=== PATIENT | male | born 2000 | race Caucasian/White ===

== ENCOUNTER 2023-06-24 10:40 | Observation (INO) | payer MEDICAID, OTHER ==
[2023-06-24] MEDS ORDERED: XYLOCAINE 1% HCL 20 ML MDV ONE (11:15)
[2023-06-24] MEDS ORDERED: MORPHINE SULFATE 2 MG INJ ONE (11:29)
--- NOTE | 2023-06-24 11:29 | ERPHSYRPT ---
- History of Present Illness Time Seen by Provider: 06/24/23 11:24 Source: patient Exam Limitations: no limitations Patient Subjective Stated Complaint: Pt states that he has an abcess on his right buttock Triage Nursing Assessment: Pt was brought to the ER by his , vitals wnl, rates pain as 8-9/10, pulses normal, skin n/w/d, extra large abcess to right distal buttock, appears to be in significant pain Physician History: Patient is a 23-year-old male presents to our ED for evaluation of a large perirectal abscess on the right gluteus. Patient states symptoms started 1 week ago. Patient did not initially seek medical assistance as he has gotten abscesses in the past and they just tend to resolve spontaneously. This abscess has gotten progressively worse. Patient has no systemic manifestations. No fever no nausea no vomiting. However the area is very tender. No trauma. Patient has no significant past medical history. Patient otherwise healthy. He voices no other complaints or concerns at this time. Portions of this note were created with voice recognition technology. There may be grammatical, spelling, punctuation or sound alike errors Timing/Duration: day(s) Severity: moderate Modifying Factors: Improves With: nothing Associated Symptoms: denies symptoms Allergies/Adverse Reactions: No Known Drug Allergies Allergy (Verified 06/24/23 10:59) Home Medications: No Reportable Medications [No Reported Medications] 06/24/23 [History] Hx Tetanus, Diphtheria Vaccination/Date Given: No Hx Influenza Vaccination/Date Given: No Hx Pneumococcal Vaccination/Date Given: No Travel Risk - International Travel Have you traveled outside of the country in past 3 weeks: No - Emerging Infectious Disease Are you exhibiting symptoms associated with any current EIDs: No - Review of Systems Constitutional: No Symptoms, No Fever, No Chills Eyes: No Symptoms Ears, Nose, & Throat: No Symptoms Respiratory: No Symptoms, No Cough, No Dyspnea Cardiac: No Symptoms, No Chest Pain, No Edema, No Syncope Abdominal/Gastrointestinal: No Symptoms, No Abdominal Pain, No Nausea, No Vomiting, No Diarrhea Genitourinary Symptoms: No Symptoms, No Dysuria Musculoskeletal: No Symptoms, No Back Pain, No Neck Pain Skin: No Symptoms, No Rash Neurological: No Symptoms, No Dizziness, No Focal Weakness, No Sensory Changes Psychological: No Symptoms Endocrine: No Symptoms Hematologic/Lymphatic: No Symptoms Immunological/Allergic: No Symptoms All Other Systems: Reviewed and Negative - Past Medical History Pertinent Past Medical History: Yes Cardiac History: Hypertension Other Medical History: obesity, kidney stones - Past Surgical History Past Surgical History: Yes Other Surgical History: toe surgery - Social History Smoking Status: Current every day smoker Exposure to second hand smoke: Yes - Nursing Vital Signs Nursing Vital Signs: Initial Vital Signs Temperature 97.5 F 06/24/23 10:47 Pulse Rate 88 06/24/23 10:47 Blood Pressure 129/74 06/24/23 10:47 O2 Sat by Pulse Oximetry 100 06/24/23 10:47 Pain Scale Pain Intensity 8 - Physical Exam General Appearance: no apparent distress, alert Eye Exam: PERRL/EOMI, eyes nml inspection Ears, Nose, Throat Exam: normal ENT inspection, TMs normal, pharynx normal, moist mucous membranes Neck Exam: normal inspection, non-tender, supple, full range of motion Respiratory Exam: normal breath sounds, lungs clear, No respiratory distress Cardiovascular Exam: regular rate/rhythm, normal heart sounds, normal peripheral pulses Gastrointestinal/Abdomen Exam: soft, normal bowel sounds, No tenderness, No mass Back Exam: normal inspection, normal range of motion, No CVA tenderness, No vertebral tenderness Extremity Exam: normal inspection, normal range of motion, pelvis stable Neurologic Exam: alert, oriented x 3, cooperative, normal mood/affect, nml cerebellar function, nml station & gait, sensation nml, No motor deficits Skin Exam: normal color, warm, dry, No rash Lymphatic Exam: No adenopathy SpO2 Interpretation: normal SpO2: 100 O2 Delivery: Room Air - Course Nursing assessment & vital signs reviewed: Yes Ordered Tests: Active Orders 24 hr Category Date Time Status Shingle Bolt Cutter STAT Care 06/24/23 11:26 Active IV Insertion STAT Care 06/24/23 11:24 Active ABDOMEN AND PELVIS W CONTRAST [CT] Stat Exams 06/24/23 11:36 Completed BLOOD CULTURE Stat Lab 06/24/23 11:54 Received CBC W DIFF Stat Lab 06/24/23 12:02 Completed CMP Stat Lab 06/24/23 12:02 Completed Transfer Order Routine Transfer 06/24/23 Ordered Medication Summary Discontinued Medications Generic Name Dose Route Start Last Admin Trade Name Freq PRN Reason Stop Dose Admin Piperacillin Sod/Tazobactam 100 mls @ 200 mls/hr 06/24/23 11:26 06/24/23 11:33 Sod 3.375 gm/ Sodium Chloride IV 06/24/23 11:55 200 mls/hr STAT ONE Administration Sodium Chloride Confirm 06/24/23 11:30 Sodium Chloride 100ml Mini-Bag Plus Administered 06/24/23 11:31 Dose 100 mls @ ud IV .STK-MED ONE Sodium Chloride Confirm 06/24/23 11:32 Sodium Chloride 100ml Mini-Bag Plus Administered 06/24/23 11:33 Dose 100 mls @ ud IV .STK-MED ONE Lidocaine HCl Confirm 06/24/23 11:15 Lidocaine Hcl 1% 20 Ml Mdv 20 Ml Ml Administered 06/24/23 11:16 Dose 1 ml .ROUTE .STK-MED ONE Morphine Sulfate 2 mg 06/24/23 11:24 06/24/23 11:36 Morphine Sulfate 2 Mg/Ml Inj IV 06/24/23 11:25 2 mg STAT ONE Administration Morphine Sulfate Confirm 06/24/23 11:29 Morphine Sulfate 2 Mg/Ml Inj Administered 06/24/23 11:30 Dose 2 mg .ROUTE .STK-MED ONE Piperacillin Sod/Tazobactam Sod Confirm 06/24/23 11:30 Piperacillin/Tazobactam Sodium 3.375 Gm Vial Administered 06/24/23 11:31 Dose 3.375 gm IV .STK-MED ONE Lab/Rad Data: Laboratory Result Diagrams 06/24/23 12:02 06/24/23 12:02 Laboratory Results 06/24/23 06/24/23 Range/Units 12:02 12:02 WBC 14.4 H (4.0-10.5) x10^3/uL RBC 4.89 (4.1-5.6) x10^6/uL Hgb 14.4 (12.5-18.0) g/dL Hct 43.6 (42-50) % MCV 89.2 (78-100) fL MCH 29.4 (26-32) pg MCHC 33.0 (32-36) g/dL RDW 12.5 (11.5-14.0) % Plt Count 199 (150-450) x10^3/uL MPV 11.6 H (7.5-11.0) fL Gran % 80.4 H (36.0-66.0) % Immature Gran % (Auto) 0.3 (0.00-0.4) % Nucleat RBC Rel Count 0.0 (0.00-0.1) % Eos # (Auto) 0.03 (0-0.5) x10^3/uL Immature Gran # (Auto) 0.04 H (0.00-0.03) x10^3u/L Absolute Lymphs (auto) 1.73 (1.0-4.6) x10^3/uL Absolute Monos (auto) 0.97 (0.0-1.3) x10^3/uL Absolute Nucleated RBC 0.00 (0.00-0.01) x10^3u/L Lymphocytes % 12.0 L (24.0-44.0) % Monocytes % 6.8 (0.0-12.0) % Eosinophils % 0.2 (0.00-5.0) % Basophils % 0.3 (0.0-0.4) % Absolute Granulocytes 11.55 H (1.4-6.9) x10^3/uL Basophils # 0.05 (0-0.4) x10^3/uL Sodium 141 (135-145) mmol/L Potassium 3.9 (3.5-5.1) mmol/L Chloride 108 H (98-107) mmol/L Carbon Dioxide 23 (22-30) mmol/L Anion Gap 13.8 (5-15) MEQ/L BUN 8 L (9-20) mg/dL Creatinine 0.97 (0.66-1.25) mg/dL Estimated GFR 111.1 ML/MIN Glucose 95 (74-106) mg/dL Calcium 9.4 (8.4-10.2) mg/dL Total Bilirubin 1.20 (0.2-1.3) mg/dL AST 20 (17-59) U/L ALT 23 (0-50) U/L Alkaline Phosphatase 61 (38-126) U/L Serum Total Protein 8.0 (6.3-8.2) g/dL Albumin 4.4 (3.5-5.0) g/dL - Progress Progress: improved Progress Note: 23-year-old male presents to our ED with a right perirectal abscess. The abscess is large and measures 5 x 6 cm. There is obvious fluctuance. CT abdomen pelvis reveals a cellulitis however per CT there is no organized fluid collection. Clinically there is fluctuance which indicates an abscess. Due to the size and patient request patient will be admitted for surgical evaluation. Antibiotics infused. Pain medication administered. Patient resting comfortably. I spoke to Dr. Thomas regarding the case. Formal consultation entered. Case discussed with Dr. Javier at 1245. Dr. Jarvis except admission to observation. Portions of this note were created with voice recognition technology. There may be grammatical, spelling, punctuation or sound alike errors Complexity problem addressed is moderate acute complicated No critical care time Complex data reviewed and analyzed is extensive test ordered test reviewed results analyzed and correlated clinically with history and physical examinat ion. Management discussed with hospitalist and general surgeon. Risk of complication or risk of morbidity/mortality of patient management is high. Patient requires hospitalization for further evaluation and treatment. Vital stable. Time spent in patient is approximately 30 minutes. Plan of care established for shared decision making. No social determinants of health present to be follow-up. Portions of this note were created with voice recognition technology. There may be grammatical, spelling, punctuation or sound alike errors 06/24/23 13:45 Counseled pt/family regarding: lab results, diagnosis, rad results - Departure Departure Disposition: Observation Clinical Impression: Leukocytosis, Abscess, Cellulitis, gluteal Condition: Stable Critical Care Time: No Referrals: DOCTOR,NO FAMILY [Primary Care Provider] - Follow up/PCP as directed
[2023-06-24] MEDS ORDERED: PIPERACILLIN/TAZOBACTAM IV ONE (11:30)
[2023-06-24] MEDS ORDERED: Sodium Chloride 100ML MINI-BAG PLUS 0 ML IV ONE (11:30)
[2023-06-24] MEDS ORDERED: Sodium Chloride 100ML MINI-BAG PLUS 100 ML IV ONE (11:32)
[2023-06-24] MEDS: PIPERACILLIN/TAZOBACTAM 3.375 GM in Sodium Chloride 100ML MINI-BAG PLUS 100 ML IV ONE (11:33)
[2023-06-24] MEDS: MORPHINE SULFATE 2 MG INJ IV ONE (11:36)
[2023-06-24 12:09] LABS: Absolute Neutrophil Ct (ANC) 11.55 x10^3/uL (1.4-6.9); BASOPHIL % 0.3 % (0.0-0.4); Basophil (Absolute #) 0.05 x10^3/uL (0-0.4); Eosinophil % 0.2 % (0.00-5.0); Eosinophil (Absolute #) 0.03 x10^3/uL (0-0.5); Hematocrit 43.6 % (42-50); Hemoglobin 14.4 g/dL (12.5-18.0); IMMATURE GRAN # 0.04 x10^3u/L (0.00-0.03); IMMATURE GRAN % 0.3 % (0.00-0.4); Lymphocyte (Absolute #) 1.73 x10^3/uL (1.0-4.6); Mean Cell Volume 89.2 fL (78-100); Mean Corpuscular Hemoglobin 29.4 pg (26-32); Mean Platelet Volume 11.6 fL (7.5-11.0); Monocyte (Absolute #) 0.97 x10^3/uL (0.0-1.3); Monocytes % 6.8 % (0.0-12.0); Neutrophil % 80.4 % (36.0-66.0); Platelet Count 199 x10^3/uL (150-450); Red Blood Count 4.89 x10^6/uL (4.1-5.6); Red Cell Distribution Width 12.5 % (11.5-14.0); White Blood Count 14.4 x10^3/uL (4.0-10.5)
[2023-06-24 12:22] LABS: ALBUMIN 4.4 g/dL (3.5-5.0); ANION GAP 13.8 MEQ/L (5-15); BILIRUBIN,TOTAL 1.2 mg/dL (0.2-1.3); Calcium 9.4 mg/dL (8.4-10.2); Creatinine 1 0.97 mg/dL (0.66-1.25); EST GLOMERULAR FILTRATION RATE 111.1 ML/MIN; Potassium 3.9 mmol/L (3.5-5.1)
--- NOTE | 2023-06-24 13:30 | XRAY ---
Indication: Perirectal abscess. Multiple contiguous axial images obtained through the abdomen and pelvis using 80 cc Isovue 370 contrast. Comparison: None Lung bases clear. Heart not enlarged. Noncontrasted stomach and bowel loops appear nonobstructed with normal appendix. Minimal sigmoid and lesser degree descending diverticulosis without diverticulitis. Both kidneys enhance and excrete with 2.5 cm left renal cortical cyst. Remaining liver, gallbladder, pancreas, spleen, adrenal glands, kidneys, ureters, bladder, and aorta are unremarkable. No pathologic retroperitoneal lymphadenopathy. Right buttock demonstrates large focus of cutaneous/subcutaneous induration without focal walled off fluid collection or subcutaneous emphysema. A few enlarged right inguinal lymph nodes, largest 1.2 x 1.5 cm presumed reactive. Osseous structures intact. Impression: 1. Right gluteal cellulitis without focal abscess/subcutaneous emphysema. Prominent reactive right inguinal lymph nodes. 2. Incidental colonic diverticulosis and small left renal cyst. 3. Remaining CT abdomen/pelvis with contrast exam is negative.
[2023-06-24] MEDS ORDERED: DIPRIVAN 200 MG/20 ML IV ONE (13:57)
--- NOTE | 2023-06-24 14:27 | PCM.HP ---
History of Present Illness - Chief Complaint Chief Complaint: krystle- rectal abcess Date: 06/24/23 History of Present Illness: is a 23 year old male with a reported hx of HTN but not on any meds. He presented to our ED today for evaluation of a large perirectal abscess on the right gluteus. Patient states symptoms started 1 week ago. Patient did not initially seek medical assistance as he has gotten abscesses in the past and they just tend to resolve spontaneously. This abscess has gotten progressively worse. Patient has no systemic manifestations. No fever no nausea no vomiting. However the area is very tender. No trauma. Patient has no significant past medical history. Patient otherwise healthy. He voices no other complaints or concerns at this time. General surgery consulted and will be taking pt to surgery later today for I&D. - Review of Systems Constitutional: No Fever, No Chills Eyes: No Symptoms Ears, Nose, & Throat: No Symptoms Respiratory: No Cough, No Short Of Breath Cardiac: No Chest Pain, No Edema, No Syncope Abdominal/Gastrointestinal: No Abdominal Pain, No Nausea, No Vomiting, No Diarrhea Genitourinary Symptoms: No Dysuria Musculoskeletal: No Back Pain, No Neck Pain Skin: Cellulitis (krystle- rectal abcess), Skin Lesions, Other, No Rash Neurological: No Dizziness, No Focal Weakness, No Sensory Changes Psychological: No Symptoms Endocrine: No Symptoms Hematologic/Lymphatic: No Symptoms Immunological/Allergic: No Symptoms Medications & Allergies Home Medications: Home Medication List No Reportable Medications [No Reported Medications] 06/24/23 [History Confirmed 06/24/23] Allergies/Adverse Reactions: Allergies Allergy/AdvReac Type Severity Reaction Status Date / Time No Known Drug Allergies Allergy Verified 06/24/23 10:59 - Past Medical History Past Medical History: Yes Cardiac History: Hypertension Comment: obesity, kidney stones - Past Surgical History Past Surgical History: Yes Other Surgical History: toe surgery - Social History Smoking Status: Current every day smoker Exposure to second hand smoke: Yes Alcohol: Occasionally - Social Determinants of Health Will the patient participate in the screening: Yes Do you worry about a steady place to live?: No Do you have any problems with any of the following?: No known problems In the past 12 months,have you had to go without utilities?: No Have you or anyone in your house had to go without enough: No Transportation Issues: No Has anyone in your support network made you feel unsafe?: No - Physical Exam Vital Signs: Vital Signs - 24 hr Temp Pulse BP BP Pulse Ox 06/24/23 13:48 100 06/24/23 13:01 132/78 99 06/24/23 13:00 98 06/24/23 12:50 100 06/24/23 12:46 99 06/24/23 11:48 119/68 06/24/23 11:00 147/73 06/24/23 10:47 97.5 F 88 129/74 100 General Appearance: no apparent distress, alert Neurologic Exam: alert, oriented x 3, cooperative, normal mood/affect, nml cerebellar function, nml station & gait, sensation nml, No motor deficits Eye Exam: PERRL/EOMI, eyes nml inspection Ears, Nose, Throat Exam: normal ENT inspection, TMs normal, pharynx normal, moist mucous membranes Neck Exam: normal inspection, non-tender, supple, full range of motion Respiratory Exam: normal breath sounds, lungs clear, No respiratory distress Cardiovascular Exam: regular rate/rhythm, normal heart sounds, normal peripheral pulses Gastrointestinal/Abdomen Exam: soft, normal bowel sounds, No tenderness, No mass Rectal Exam: other (krystle- rectal abcess) Back Exam: normal inspection, normal range of motion, No CVA tenderness, No vertebral tenderness Extremity Exam: normal inspection, normal range of motion, pelvis stable Skin Exam: normal color, warm, dry, No rash Lymphatic Exam: No adenopathy Results - Labs Lab/Micro Results: Lab Results-Last 24 Hours 06/24/23 06/24/23 Range/Units 12:02 12:02 WBC 14.4 H (4.0-10.5) x10^3/uL RBC 4.89 (4.1-5.6) x10^6/uL Hgb 14.4 (12.5-18.0) g/dL Hct 43.6 (42-50) % MCV 89.2 (78-100) fL MCH 29.4 (26-32) pg MCHC 33.0 (32-36) g/dL RDW 12.5 (11.5-14.0) % Plt Count 199 (150-450) x10^3/uL MPV 11.6 H (7.5-11.0) fL Gran % 80.4 H (36.0-66.0) % Immature Gran % (Auto) 0.3 (0.00-0.4) % Nucleat RBC Rel Count 0.0 (0.00-0.1) % Eos # (Auto) 0.03 (0-0.5) x10^3/uL Immature Gran # (Auto) 0.04 H (0.00-0.03) x10^3u/L Absolute Lymphs (auto) 1.73 (1.0-4.6) x10^3/uL Absolute Monos (auto) 0.97 (0.0-1.3) x10^3/uL Absolute Nucleated RBC 0.00 (0.00-0.01) x10^3u/L Lymphocytes % 12.0 L (24.0-44.0) % Monocytes % 6.8 (0.0-12.0) % Eosinophils % 0.2 (0.00-5.0) % Basophils % 0.3 (0.0-0.4) % Absolute Granulocytes 11.55 H (1.4-6.9) x10^3/uL Basophils # 0.05 (0-0.4) x10^3/uL Sodium 141 (135-145) mmol/L Potassium 3.9 (3.5-5.1) mmol/L Chloride 108 H (98-107) mmol/L Carbon Dioxide 23 (22-30) mmol/L Anion Gap 13.8 (5-15) MEQ/L BUN 8 L (9-20) mg/dL Creatinine 0.97 (0.66-1.25) mg/dL Estimated GFR 111.1 ML/MIN Glucose 95 (74-106) mg/dL Calcium 9.4 (8.4-10.2) mg/dL Total Bilirubin 1.20 (0.2-1.3) mg/dL AST 20 (17-59) U/L ALT 23 (0-50) U/L Alkaline Phosphatase 61 (38-126) U/L Serum Total Protein 8.0 (6.3-8.2) g/dL Albumin 4.4 (3.5-5.0) g/dL - Radiology Impressions Radiology Exams & Impressions: Radiology Procedures Category Date Time Status ABDOMEN AND PELVIS W CONTRAST [CT] Stat Exams 06/24/23 11:36 Completed Assessment/Plan (1) Krystle-rectal abscess Current Visit: Yes Status: Acute Assessment & Plan: - Contact isolation - Flagyl, ceftriaxone, and vancomycin - Surgery consult - Narcotic pain meds PRN - Tylenol for pain or fever PRN Code(s): K61.1 - RECTAL ABSCESS (2) Obesity (BMI 30-39.9) Current Visit: Yes Status: Acute Assessment & Plan: - advised diet and exercise control Code(s): E66.9 - OBESITY, UNSPECIFIED (3) Leukocytosis Current Visit: Yes Status: Acute Assessment & Plan: - 2:2 perirectal abcess VTE: SCD's Next of KIN: D/c plan 1-2 days Code status: Full Code(s): D72.829 - ELEVATED WHITE BLOOD CELL COUNT, UNSPECIFIED Telemedicine Encounter - Telemedicine Encounter Telemedicine Encounter: The entirety of this encounter was performed via Telemedicine"
[2023-06-24] MEDS ORDERED: NORCO 5/325 MG PO PRN ×2 (14:30→20:53)
[2023-06-24] MEDS ORDERED: MORPHINE SULFATE 2 MG INJ IV PRN (14:30)
[2023-06-24] MEDS ORDERED: TYLENOL 325 MG PO PRN (14:31)
[2023-06-24] MEDS: ROCEPHIN 1 GM / 100 ML NaCl 1 GM/100 ML IVPB IV SCH (16:21)
[2023-06-24] MEDS: PHARMACY DOSING REQUIRED: VANCOMYCIN IV STA (16:36)
[2023-06-24] MEDS: FLAGYL 500 MG IVPB 500 MG/100 ML BAG IV SCH (16:49)
[2023-06-24] MEDS: VANCOMYCIN 1.5 GRAM/300 ML BAG 1.5 GM/300 ML PIGGYBACK IV SCH (17:52)
[2023-06-24] MEDS ORDERED: SUBLIMAZE 100 MCG/2 ML ONE (18:59)
[2023-06-24] MEDS ORDERED: BRIDION 200MG/2ML IV ONE (19:29)
[2023-06-24] MEDS ORDERED: ROCURONIUM BROMIDE IV ONE (19:29)
[2023-06-24] MEDS ORDERED: Decadron 4 MG INJ ONE (19:29)
[2023-06-24] MEDS ORDERED: Zofran 4 MG/2 ML VIAL ONE (19:29)
[2023-06-24] MEDS ORDERED: Quelicin Fliptop 200 MG/10 ML ONE (19:29)
[2023-06-24] MEDS ORDERED: DILAUDID 2 MG INJECTION ONE (19:31)
[2023-06-24] MEDS ORDERED: MORPHINE SULFATE 4 MG INJ IV PRN (20:39)
[2023-06-24] MEDS ORDERED: Zofran 4 MG/2 ML VIAL IV PRN (20:40)
[2023-06-24] MEDS: PIPERACILLIN/TAZOBACTAM 3.375 GM in Sodium Chloride 100ML MINI-BAG PLUS 100 ML IV SCH (22:49)
[2023-06-24] MEDS: Ambien 5 MG Tablet PO PRN (22:50)
[2023-06-25 05:47] LABS: Hematocrit 41.7 % (42-50); Hemoglobin 13.9 g/dL (12.5-18.0); Mean Cell Volume 87.6 fL (78-100); Mean Corpuscular Hemoglobin 29.2 pg (26-32); Mean Corpuscular Hgb Concent. 33.3 g/dL (32-36); Mean Platelet Volume 11.8 fL (7.5-11.0); Platelet Count 204 x10^3/uL (150-450); Red Blood Count 4.76 x10^6/uL (4.1-5.6); Red Cell Distribution Width 12.7 % (11.5-14.0); White Blood Count 14.7 x10^3/uL (4.0-10.5)
[2023-06-25 06:02] LABS: ALBUMIN 4.1 g/dL (3.5-5.0); ANION GAP 13.6 MEQ/L (5-15); BILIRUBIN,TOTAL 1.2 mg/dL (0.2-1.3); Calcium 9.4 mg/dL (8.4-10.2); Creatinine 1 0.9 mg/dL (0.66-1.25); EST GLOMERULAR FILTRATION RATE 121.6 ML/MIN; Potassium 4.5 mmol/L (3.5-5.1); Total Protein 7.7 g/dL (6.3-8.2)
[2023-06-25 08:36] VITALS: BP 123/63; PULSE 63; RESP 16; TEMP 97.6; O2SAT 99
--- NOTE | 2023-06-25 09:10 | CONS ---
CONSULT DATE: 06/24/2023 HISTORY OF PRESENT ILLNESS: Patient is a 23 year-old who has some intermittent infections in his buttock perirectal area. Has one for the past week or two, enlarging. He was seen in the ER earlier. Originally, the ER doctor told me he was going to try to drain it and then decided about sending him. Apparently, they decided to admit him and get an anesthesia and surgical consult for later in the evening. They understood that we were tied up at another facility and couldn't be here until late this evening. PAST MEDICAL HISTORY: Denies any chronic illnesses. HOME MEDICATIONS: None on a regular basis. ALLERGIES: NKDA. FAMILY HISTORY: Hypertension, diabetes, cancer, dementia, heart disease. SOCIAL HISTORY: Every day smoker. No alcohol abuse. PAST SURGICAL HISTORY: He had some toe surgery. Denied any abdominal or perirectal surgery in the past. His WBC is 14.4, Hgb 14.4. REVIEW OF SYSTEMS: 12 systems reviewed. Denied any other problems. He is a little bit overweight. Does smoke. Otherwise, no chest pain. No abdominal pain. This has been going on for some time, getting bigger, increased discomfort. He is afebrile, vital signs stable. PHYSICAL EXAMINATION: GENERAL: No acute distress. HEENT: Sclerae nonicteric. All mucous membranes moist. Extraocular movements intact. NECK: No JVD. CHEST: Equal excursion. Nonlabored breathing. CVS: Regular rate and rhythm. ABDOMEN: Soft, obese. EXTREMITIES: No cyanosis. On his perirectal buttock area towards the right, he has got a large area the size of a small piece of fruit, small amount of drainage. Otherwise, no cyanosis of the extremities. NEURO: Alert, moving extremities symmetrically. PSYCH: Appropriate mood and affect. IMPRESSION: 1. PERIRECTAL BUTTOCK AREA ABSCESS. FELT THE PATIENT WOULD BENEFIT FROM DEBRIDEMENT AND DRAINAGE. Risks explained in detail including bleeding; infection; risk of non-healing of the wound possibly requiring other procedures; the fact that we would need to pack the wound and heal from secondary intent and would take several weeks changing the packing daily. He understands and agrees to the planned procedure. Otherwise, continue IV antibiotics. He is admitted to the hospitalist. Will debride and drain his infection this evening. He agreeable as well as general risks of anesthesia, deep venous thrombosis, pulmonary embolism, and pneumonia, but not limited to. The family is agreeable at the bedside as well. Thank you for the consult.
--- NOTE | 2023-06-25 09:45 | OP ---
SURGERY DATE: 06/24/2023 SURGERY TIME: 1853 PREOPERATIVE DIAGNOSIS: 1. WORSENING INFECTION ABSCESS PERIRECTAL BUTTOCK AREA IN NEED OF DEBRIDEMENT AND DRAINAGE. POSTOPERATIVE DIAGNOSIS: 1. WORSENING INFECTION ABSCESS PERIRECTAL BUTTOCK AREA IN NEED OF DEBRIDEMENT AND DRAINAGE. PROCEDURE: 1. Incisional debridement of 4.5 cm X 3 cm X 2 cm deep abscess cavity with excision of skin and devitalized subcutaneous underlying fat, drainage of underlying purulence with culture, irrigation, and packing. SURGEON: Dr. Rik Thomas. ANESTHESIA: General. ESTIMATED BLOOD LOSS: Minimal. INDICATIONS: As noted above. Consent was obtained. DESCRIPTION OF PROCEDURE AND FINDINGS: The patient taken to the OR. There was no disagreement of the site. General anesthesia was induced. He was prepped and draped in the usual sterile fashion in lithotomy position. After official time-out, no disagreement in the planned procedure. With a scalpel, he had an ischemic portion of skin that did not look like it was going to make it long-term. It was felt this should be opened widely. Underneath was some devitalized subcutaneous fat with some areas of necrosis. It was felt this needed to be excised. This area was about 4.5 X 3 cm wide by 2 cm deep. Hemostasis was controlled with some pinpoint cautery. There was a little ischemic area of skin that was also additional piece of skin as it was felt this was nonviable. Wound was irrigated out. Appeared to have adequate hemostasis and packed with normal saline wet-to-dry. Culture had been taken and a copious amount of irrigation. After recovery room, he will go back to the floor for continued IV antibiotics, daily wound packing changes per the patient or staff, and then to follow-up in the office in 3 weeks.
--- NOTE | 2023-06-25 09:50 | PCM.DS ---
Discharge Summary Date of Admission: 06/24/23 13:56 Date of Discharge: 06/25/23 Admitting Physician: FRANCHESCA SIMMONS MD Consults: Consults on Case 06/24/23 14:27 Consult Surgery ROUTINE Primary Care Provider: NO FAMILY DOCTOR Allergies Allergies No Known Drug Allergies Allergy (Verified 06/24/23 10:59) Hospital Summary - Hospital Course Hospital Course: 06/24/23 is a 23 year old male with a reported hx of HTN but not on any meds. He presented to our ED today for evaluation of a large perirectal abscess on the right gluteus. Patient states symptoms started 1 week ago. Patient did not initially seek medical assistance as he has gotten abscesses in the past and they just tend to resolve spontaneously. This abscess has gotten progressively worse. Patient has no systemic manifestations. No fever no nausea no vomiting. However the area is very tender. No trauma. Patient has no significant past medical history. Patient otherwise healthy. He voices no other complaints or concerns at this time. General surgery consulted and will be taking pt to surgery later today for I&D. 06/25/23 Pt resting n bed. He is wanting to go home. Pt had an I&D with [facility] last night. Wound is now packed. He is to have daily dressing changes. His is going to do this. He refuses HHC. Will continue OP antibiotics. He denies CP, SOB, Abd. pain, N/V/D. We will make appointment for f/u with PCP and [facility] OP. - Vitals & Intake/Output Vital Signs: Vital Signs Temperature 97.6 F 06/25/23 08:36 Pulse Rate 63 06/25/23 08:36 Respiratory Rate 16 06/25/23 08:36 Blood Pressure 123/63 06/25/23 08:36 O2 Sat by Pulse Oximetry 99 06/25/23 08:36 Intake & Output: Intake & Output 06/22/23 06/23/23 06/24/23 06/25/23 11:59 11:59 11:59 11:59 Intake Total 660 Balance 660 Weight 127.006 kg 124 kg - Lab Result Diagrams: 06/25/23 05:30 06/25/23 05:30 Lab Results-Last 24 Hrs: Lab Results-Last 24 Hours 04/23/24 04/23/24 04/24/24 Range/Units 12:02 12:02 05:30 WBC 14.4 H (4.0-10.5) x10^3/uL RBC 4.89 (4.1-5.6) x10^6/uL Hgb 14.4 (12.5-18.0) g/dL Hct 43.6 (42-50) % MCV 89.2 (78-100) fL MCH 29.4 (26-32) pg MCHC 33.0 (32-36) g/dL RDW 12.5 (11.5-14.0) % Plt Count 199 (150-450) x10^3/uL MPV 11.6 H (7.5-11.0) fL Gran % 80.4 H (36.0-66.0) % Immature Gran % (Auto) 0.3 (0.00-0.4) % Nucleat RBC Rel Count 0.0 (0.00-0.1) % Eos # (Auto) 0.03 (0-0.5) x10^3/uL Immature Gran # (Auto) 0.04 H (0.00-0.03) x10^3u/L Absolute Lymphs (auto) 1.73 (1.0-4.6) x10^3/uL Absolute Monos (auto) 0.97 (0.0-1.3) x10^3/uL Absolute Nucleated RBC 0.00 (0.00-0.01) x10^3u/L Lymphocytes % 12.0 L (24.0-44.0) % Monocytes % 6.8 (0.0-12.0) % Eosinophils % 0.2 (0.00-5.0) % Basophils % 0.3 (0.0-0.4) % Absolute Granulocytes 11.55 H (1.4-6.9) x10^3/uL Basophils # 0.05 (0-0.4) x10^3/uL Sodium 141 138 (135-145) mmol/L Potassium 3.9 4.5 (3.5-5.1) mmol/L Chloride 108 H 107 (98-107) mmol/L Carbon Dioxide 23 22 (22-30) mmol/L Anion Gap 13.8 13.6 (5-15) MEQ/L BUN 8 L 8 L (9-20) mg/dL Creatinine 0.97 0.90 (0.66-1.25) mg/dL Estimated GFR 111.1 121.6 ML/MIN Glucose 95 108 H (74-106) mg/dL Calcium 9.4 9.4 (8.4-10.2) mg/dL Total Bilirubin 1.20 1.20 (0.2-1.3) mg/dL AST 20 23 (17-59) U/L ALT 23 20 (0-50) U/L Alkaline Phosphatase 61 58 (38-126) U/L Serum Total Protein 8.0 7.7 (6.3-8.2) g/dL Albumin 4.4 4.1 (3.5-5.0) g/dL 06/25/23 Range/Units 05:30 WBC 14.7 H (4.0-10.5) x10^3/uL RBC 4.76 (4.1-5.6) x10^6/uL Hgb 13.9 (12.5-18.0) g/dL Hct 41.7 L (42-50) % MCV 87.6 (78-100) fL MCH 29.2 (26-32) pg MCHC 33.3 (32-36) g/dL RDW 12.7 (11.5-14.0) % Plt Count 204 (150-450) x10^3/uL MPV 11.8 H (7.5-11.0) fL Gran % (36.0-66.0) % Immature Gran % (Auto) (0.00-0.4) % Nucleat RBC Rel Count (0.00-0.1) % Eos # (Auto) (0-0.5) x10^3/uL Immature Gran # (Auto) (0.00-0.03) x10^3u/L Absolute Lymphs (auto) (1.0-4.6) x10^3/uL Absolute Monos (auto) (0.0-1.3) x10^3/uL Absolute Nucleated RBC (0.00-0.01) x10^3u/L Lymphocytes % (24.0-44.0) % Monocytes % (0.0-12.0) % Eosinophils % (0.00-5.0) % Basophils % (0.0-0.4) % Absolute Granulocytes (1.4-6.9) x10^3/uL Basophils # (0-0.4) x10^3/uL Sodium (135-145) mmol/L Potassium (3.5-5.1) mmol/L Chloride (98-107) mmol/L Carbon Dioxide (22-30) mmol/L Anion Gap (5-15) MEQ/L BUN (9-20) mg/dL Creatinine (0.66-1.25) mg/dL Estimated GFR ML/MIN Glucose (74-106) mg/dL Calcium (8.4-10.2) mg/dL Total Bilirubin (0.2-1.3) mg/dL AST (17-59) U/L ALT (0-50) U/L Alkaline Phosphatase (38-126) U/L Serum Total Protein (6.3-8.2) g/dL Albumin (3.5-5.0) g/dL - Radiology Exams Ordered Rad Exams-Entire Visit: Radiology Procedures Category Date Time Status ABDOMEN AND PELVIS W CONTRAST [CT] Stat Exams 06/24/23 11:36 Completed Discharge Exam General Appearance: no apparent distress, alert Neurologic Exam: alert, oriented x 3, cooperative, normal mood/affect, nml cerebellar function, sensation nml, No motor deficits Eye Exam: PERRL, EOMI, eyes nml inspection Ears, Nose, Throat Exam: normal ENT inspection, pharynx normal, moist mucous membranes Neck Exam: normal inspection, non-tender, supple, full range of motion Respiratory Exam: normal breath sounds, lungs clear, No respiratory distress Cardiovascular Exam: regular rate/rhythm, normal heart sounds Gastrointestinal/Abdomen Exam: soft, No tenderness, No mass Male Genitalia Exam: deferred Rectal Exam: other (krystle-rectal abcess packed) Back Exam: normal inspection, normal range of motion, No CVA tenderness, No vertebral tenderness Extremity Exam: normal inspection, normal range of motion Skin Exam: normal color, warm, dry Final Diagnosis/Problem List - Final Discharge Diagnosis/Problem (1) Krystle-rectal abscess Current Visit: Yes Status: Acute Code(s): K61.1 - RECTAL ABSCESS (2) Obesity (BMI 30-39.9) Current Visit: Yes Status: Acute Code(s): E66.9 - OBESITY, UNSPECIFIED (3) Leukocytosis Current Visit: Yes Status: Acute Assessment & Plan: (1) Krystle-rectal abscess Current Visit: Yes Status: Acute Assessment & Plan: - Contact isolation - Flagyl, ceftriaxone, and vancomycin - Surgery consult - Narcotic pain meds PRN - Tylenol for pain or fever PRN 06/24 - I&d last night with [facility] - F/U in 3 weeks with [facility] - repack daily- willing to do - refusing HHC - Continue OP antibiotics - will make f/u appointment with PCP - A1C pending Code(s): K61.1 - RECTAL ABSCESS (2) Obesity (BMI 30-39.9) Current Visit: Yes Status: Acute Assessment & Plan: - advised diet and exercise control Code(s): E66.9 - OBESITY, UNSPECIFIED (3) Leukocytosis Current Visit: Yes Status: Acute Assessment & Plan: - 2:2 perirectal abcess Code(s): D72.829 - ELEVATED WHITE BLOOD CELL COUNT, UNSPECIFIED - Discharge Discharge Date: 06/25/23 Disposition: Home, Self-Care Condition: Stable Prescriptions: No Action No Reportable Medications [No Reported Medications] Instructions: Wound Incision and Drainage, Wound Care (DC) Follow up with: DOCTOR,NO FAMILY [Primary Care Provider] -
[2023-06-25] MEDS ORDERED: Lactated Ringers 1,000 ML IV ONE (11:40)
[2023-06-26] MEDS ORDERED: TROUGH DRUG LEVELS IJ ONE (09:30)
== END 2023-06-25 12:20 | disposition home or self-care (01) ==
LOC: ED 10:40 → MED SURG 13:56
PROVIDERS: ADMIT Internal Medicine; ATTEND Internal Medicine
DX: K61.1 Rectal abscess (principal); E66.9 Obesity, unspecified; D72.829 Elevated white blood cell count, unspecified; F17.200 Nicotine dependence, unspecified, uncomplicated
CPT/HCPCS: 11042; 36000; 36415; 74177; 80053; 83036; 85025; 85027; 87040; 87070; 87075; 93041; 96365; 96374; 99285; G0378; Q3014; J0330; J0696; J1100; J1170; J2270; J2405; J2704; J3010; A9270-GY; J3370